=== PATIENT | female | born 1990 | race African-American/Black ===

== ENCOUNTER 2020-09-20 14:00 | Emergency (ER) | payer MEDICAID ==
[~2020-09-20] VITALS: Ht 190.5 cm; Wt 65.8 kg
--- NOTE | 2020-09-20 14:20 | NUR ---
BIBSELF, C/O PAINFUL LUMP ON RIGHT BREAST X1 WEEK, REPORTS REDNESS/SWELLING. PATIENT A/OX4, AMBULATORY WITH STEADY GAIT. NO DISTRESS NOTED. DR. OTERO AT BEDSIDE FOR EVAL.
[2020-09-20] MEDS ORDERED: IBUPROFEN 600 MG TABLET PO ONE (15:00)
[2020-09-20] MEDS ORDERED: IBUPROFEN 600 MG TABLET ONE (15:02)
--- NOTE | 2020-09-20 15:04 | NUR ---
US TECH AT BEDSIDE.
--- NOTE | 2020-09-20 16:33 | NUR ---
Patient given a copy of breast ultrasound and gave instruction to follow up with a mammogram and breast ultrasound. Patient discharged to home in stable condition. Written and verbal after care instructions given. Patient verbalizes understanding of instruction.
[2020-09-20 16:34] VITALS: BP 139/68
== END 2020-09-20 16:34 | disposition home or self-care (01) ==
LOC: ER 14:07
DX: N61.0 Mastitis without abscess (principal); N63.10 Unspecified lump in the right breast, unspecified quadrant; Z60.2 Problems related to living alone
CPT/HCPCS: 76641-TC

== ENCOUNTER 2021-02-17 22:11 | Emergency (ER) | payer MEDICAID ==
[~2021-02-17] VITALS: Ht 190.5 cm; Wt 65.8 kg
[2021-02-17 22:32] VITALS: BP 120/72
--- NOTE | 2021-02-17 22:35 | NUR ---
BIBS FOR FACIAL RASHES X 4 DAYS. ON PO ATB FOR INGROIN HAIR CYST REMOVAL X 5 DAYS. THE PATINET DENIES PAIN. WILL CONTINUE TO MONITOR.
[2021-02-17] MEDS ORDERED: CLIN300C12 PO (22:51)
--- NOTE | 2021-02-17 23:02 | NUR ---
Patient discharged to home in stable condition. Written and verbal after care instructions given. Patient verbalizes understanding of instruction. The patient left ER in stable condition.
== END 2021-02-17 23:05 | disposition home or self-care (01) ==
LOC: ER 22:16
DX: L27.0 Generalized skin eruption due to drugs and medicaments taken internally (principal); T36.4X5A Adverse effect of tetracyclines, initial encounter; Z60.2 Problems related to living alone; Z79.899 Other long term (current) drug therapy; Y92.9 Unspecified place or not applicable

== ENCOUNTER 2021-02-18 13:02 | Emergency (ER) | payer MEDICAID ==
[~2021-02-18] VITALS: Ht 190.5 cm; Wt 65.8 kg
[~2021-02-18 13:02] MED LIST: CLIN300C12 PO
[2021-02-18 13:13] VITALS: BP 112/80
--- NOTE | 2021-02-18 14:14 | NUR ---
Patient eloped prior to discharge instructions.
--- NOTE | 2021-02-18 14:14 | NUR ---
Patient eloped from facility. ER MD notified.
--- NOTE | 2021-02-18 14:30 | NUR ---
PATIENT CAME BACK TO THE ROOM.
[2021-02-18] MEDS ORDERED: CLINDAMYCIN HCL 150 MG CAPSULE PO ONE ×2 (14:49→15:00)
[2021-02-18] MEDS ORDERED: DEXAMETHASONE SOD PHOSPHATE 10 MG/ML VIAL ONE (14:49)
[2021-02-18] MEDS ORDERED: diphenhydrAMINE HCL 25 MG CAPSULE ONE (14:50)
[2021-02-18] MEDS ORDERED: FAMOTIDINE (20 MG) 20 MG TABLET ONE (14:50)
[2021-02-18] MEDS ORDERED: FAMOTIDINE (20 MG) 20 MG TABLET PO ONE (15:00)
[2021-02-18] MEDS ORDERED: DEXAMETHASONE SOD PHOSPHATE 4 MG/ML VIAL IM ONE (15:00)
[2021-02-18] MEDS ORDERED: DIPHENHYDRAMINE HCL 12.5 MG/5 ML UDC PO ONE (15:00)
--- NOTE | 2021-02-18 15:14 | NUR ---
PATIENT REFUSING TO WAIT FOR PAPERWORKS.DISCHARGE INSTRUCTIONS PROVIDED VERBALLY BY DR. HERNANDEZ. PATIENT VERBALIZED UNDERSTANDING.
== END 2021-02-18 14:15 | disposition home or self-care (01) ==
LOC: ER 13:08
DX: R21 Rash and other nonspecific skin eruption (principal); Z60.2 Problems related to living alone; Z79.899 Other long term (current) drug therapy
CPT/HCPCS: 96372; 99284; J1100; Q0163